=== PATIENT | male | born 1965 | race Caucasian/White ===

== ENCOUNTER → 2016-06-29 | Outpatient (CLI) | payer OTHER ==
--- NOTE | 2016-06-29 08:27 | US ---
Sonography Limited to the Right Upper Quadrant of the Abdomen CLINICAL HISTORY: 50-year-old male with elevated liver function tests. ICD 10 Diagnostic Code: K76.89. TECHNIQUE: A curvilinear 5 MHz transducer was used to sonographically evaluate the right upper quadra nt of the abdomen. Color Doppler was used. Cine clips are acquired through the liver near the gallbla dder fossa. COMPARISON STUDY: Dictated report of a right upper quadrant [place] [facility] [place]. Prior images have since been purged. FINDINGS: The pancreatic head, neck, and body are unremarkable. The pancreatic tail is partially obsc ured by overlying bowel gas. The abdominal aorta is normal in size, and tapers normally. The visualiz ed IVC is normal in caliber. The hepatic vein trifurcation is normal. The main portal vein is patent. The liver is normal in size, measuring 14.5 cm along the right midaxillary line. There is moderate d iffuse increased echogenicity associated with the liver, consistent with fatty infiltration. There ar e areas of focal fat-sparing near the gallbladder fossa, measuring 7.4 x 4.5 x 3.8 cm and 1.4 x 2.0 x 1.4 cm. There is no intra or extrahepatic bile duct dilatation. The common bile duct measures 3.1 mm . The gallbladder is moderately distended, and there is no evidence of cholelithiasis, sludge, polyp, wall thickening, pericholecystic fluid, or sonographic Amaro sign. The right kidney is normal in si ze, shape, and contour, with a normal renal cortical thickness, and no focal renal mass or hydronephr osis, and measures 10.1 x 5.5 x 5.3 cm. There is no ascites or right pleural effusion. IMPRESSION: 1. Hepatic steatosis with areas of fat-sparing near the gallbladder fossa. 2. Normal appearance of the gallbladder, with no cholelithiasis, cholecystitis, or bile duct dilatati on.
== END ==
LOC: FIMAGING 07:34
PROVIDERS: ATTEND Internal Medicine
DX: K76.0 Fatty (change of) liver, not elsewhere classified (principal)

== ENCOUNTER → 2016-11-15 | Outpatient (CLI) | payer OTHER | LOC: BMCIMAGING 11:25 | PROVIDERS: ATTEND Internal Medicine Rheumatology | DX: M19.072 Primary osteoarthritis, left ankle and foot (principal); M19.071 Primary osteoarthritis, right ankle and foot; M19.042 Primary osteoarthritis, left hand; M19.041 Primary osteoarthritis, right hand ==